=== PATIENT | male | born 1995 | race Caucasian/White ===

== ENCOUNTER 2017-12-30 18:07 | Emergency (ER) | payer BC, MEDICAID ==
[~2017-12-30] VITALS: Ht 167.6 cm; Wt 65.0 kg
[2017-12-30 18:08] VITALS: BP 152/93
[2017-12-30] MEDS ORDERED: LIDOcaine 1%/PF 5ML 10 MG/ML VIAL IJ ONE (18:35)
[2017-12-30] MEDS ORDERED: TETanus/Pertussis (Acell)/Diphther VAC/PF (Tdap-Adult) 0.5ml syringe IMVAC ONE (18:35)
[2017-12-30] MEDS ORDERED: NO HOME MEDS (19:25)
== END 2017-12-30 20:27 | disposition home or self-care (01) ==
LOC: ER 18:08
DX: S01.112A Laceration without foreign body of left eyelid and periocular area, initial encounter (principal); S00.93XA Contusion of unspecified part of head, initial encounter; F17.200 Nicotine dependence, unspecified, uncomplicated; X99.1XXA Assault by knife, initial encounter; Y93.89 Activity, other specified; Y92.89 Other specified places as the place of occurrence of the external cause; Y99.8 Other external cause status
CPT/HCPCS: 12013; 70450; 90471; 90715; 99284; J2001